=== PATIENT | male | born 1975 | race Caucasian/White ===

== ENCOUNTER 2018-01-01 11:32 | Emergency (ER) | payer BC ==
--- NOTE | 2018-01-01 11:44 | EDM.PDOC ---
ED HPI GENERAL MEDICAL PROBLEM - General Chief Complaint: Abdominal Pain Stated Complaint: UPPPER STOMACH PAIN Time Seen by Provider: 01/01/18 11:40 Source of Information: Reports: Patient History Limitations: Reports: No Limitations - History of Present Illness INITIAL COMMENTS - FREE TEXT/NARRATIVE: History of present illness: []Patient has had 4 days of gastric pain that is worsening. He has had fevers and chills but denies any nausea vomiting or diarrhea. Patient has had his appendix out but he recently learned he has a history of gallbladder disease in his family. Patient denies any known history of acid reflux. He denies any black stools. He has not noted any pattern of food worsening his pain. Review of systems: As per history of present illness and below otherwise all systems reviewed and negative. Past medical history: As per history of present illness and as reviewed below otherwise noncontributory. Surgical history: As per history of present illness and as reviewed below otherwise noncontributory. Social history: No reported history of drug or alcohol abuse. Family history: As per history of present illness and as reviewed below otherwise noncontributory. Physical exam: General: Well developed, well nourished in NAD HEENT: Atraumatic, normocephalic, pupils reactive, negative for conjunctival pallor or scleral icterus, mucous membranes moist, throat clear, neck supple, nontender, trachea midline. Lungs: Clear to auscultation, breath sounds equal bilaterally, chest nontender. Heart: S1S2, regular, negative for clicks, rubs, or JVD. Abdomen: NABS Soft, nondistended, tender epigastrium no rebound or guarding. Negative for masses or hepatosplenomegaly. Negative for costovertebral tenderness. Pelvis: Stable nontender. Genitourinary: Deferred. Rectal: Deferred. Extremities: Atraumatic, negative for cords or calf pain. Neurovascular unremarkable. Neuro: Awake, alert, oriented. Cranial nerves II through XII unremarkable. Cerebellum unremarkable. Motor and sensory unremarkable throughout. Exam nonfocal. Diagnostics: CBC, normal chemistry normal including LFTs and lipase, UA negative Therapeutics: []Pepcid IV, IV fluids. Impression: []Acid reflux Plan: []Prilosec once a day for 2 weeks follow up with primary care return if symptoms worsen or change. Definitive disposition and diagnosis as appropriate pending reevaluation and review of above. Epigastric Pain Score (Numeric/FACES): 4 - Related Data Allergies Allergy/AdvReac Type Severity Reaction Status Date / Time No Known Allergies Allergy Verified 01/01/18 11:46 Home Meds: Home Meds . [No Known Home Meds] 11/12/14 [History] Social & Family History - Tobacco Use Smoking Status *Q: Current Some Day Smoker Years of Tobacco use: 15 - Alcohol Use Days Per Week of Alcohol Use: 2 Number of Drinks Per Day: 3 Total Drinks Per Week: 6 - Recreational Drug Use Recreational Drug Use: No ED ROS GENERAL - Review of Systems Review Of Systems: See Below (See history of present illness) ED EXAM, GI/ABD - Physical Exam Exam: See Below (See history of present illness) Course - Vital Signs Last Recorded V/S: Last Vital Signs Temp 97.3 F 01/01/18 11:44 Pulse 73 01/01/18 11:44 Resp 18 01/01/18 11:44 BP 115/72 01/01/18 11:44 Pulse Ox 97 01/01/18 11:44 - Orders/Labs/Meds Orders: Active Orders 24 hr Category Date Time Status UA W/MICROSCOPIC [URIN] Stat Lab 01/01/18 12:53 Ordered Sodium Chloride 0.9% [Saline Flush] Med 01/01/18 11:51 Active 10 ml FLUSH ASDIRECTED PRN Sodium Chloride 0.9% [Saline Flush] Med 01/01/18 11:51 Active 2.5 ml FLUSH ASDIRECTED PRN Saline Lock Insert [OM.PC] Stat Oth 01/01/18 11:51 Ordered Medication Orders Sodium Chloride (Saline Flush) 10 ml FLUSH ASDIRECTED PRN PRN Reason: Keep Vein Open Sodium Chloride (Saline Flush) 2.5 ml FLUSH ASDIRECTED PRN PRN Reason: Keep Vein Open Labs: Laboratory Tests 01/01/18 01/01/18 01/01/18 Range/Units 12:02 12:02 12:53 WBC 10.15 (4.0-11.0) K/uL RBC 5.03 (4.50-5.90) M/uL Hgb 14.0 (13.0-17.0) g/dL Hct 41.8 (38.0-50.0) % MCV 83.1 (80.0-98.0) fL MCH 27.8 (27.0-32.0) pg MCHC 33.5 (31.0-37.0) g/dL RDW Std Deviation 40.9 (28.0-62.0) fl RDW Coeff of Osmin 14 (11.0-15.0) % Plt Count 329 (150-400) K/uL MPV 9.10 (7.40-12.00) fL Neut % (Auto) 65.8 (48.0-80.0) % Lymph % (Auto) 22.3 (16.0-40.0) % Terry % (Auto) 8.8 (0.0-15.0) % Eos % (Auto) 2.5 (0.0-7.0) % Baso % (Auto) 0.6 (0.0-1.5) % Neut # (Auto) 6.7 H (1.4-5.7) K/uL Lymph # (Auto) 2.3 (0.6-2.4) K/uL Terry # (Auto) 0.9 H (0.0-0.8) K/uL Eos # (Auto) 0.3 (0.0-0.7) K/uL Baso # (Auto) 0.1 (0.0-0.1) K/uL Nucleated RBC % 0.0 /100WBC Nucleated RBCs # 0 K/uL Sodium 137 (136-148) mmol/L Potassium 3.9 (3.5-5.1) mmol/L Chloride 102 (98-107) mmol/L Carbon Dioxide 28.6 (21.0-32.0) mmol/L BUN 15 (7.0-18.0) mg/dL Creatinine 1.0 (0.8-1.3) mg/dL Est Cr Clr Drug Dosing 111.88 mL/min Estimated GFR (MDRD) > 60.0 ml/min Glucose 89 (74-106) mg/dL Calcium 8.6 (8.5-10.1) mg/dL Total Bilirubin 0.3 (0.2-1.0) mg/dL AST 28 (15-37) IU/L ALT 29 (14-63) IU/L Alkaline Phosphatase 72 (46-116) U/L Total Protein 6.8 (6.4-8.2) g/dL Albumin 3.7 (3.4-5.0) g/dL Globulin 3.1 (2.0-3.5) g/dL Albumin/Globulin Ratio 1.2 L (1.3-2.8) Lipase 121 (73-393) U/L Urine Color YELLOW Urine Appearance CLEAR Urine pH 7.5 (5.0-8.0) Ur Specific [place] 1.010 (1.001-1.035) Urine Protein NEGATIVE (NEGATIVE) mg/dL Urine Glucose (UA) NEGATIVE (NEGATIVE) mg/dL Urine Ketones NEGATIVE (NEGATIVE) mg/dL Urine Occult Blood NEGATIVE (NEGATIVE) Urine Nitrite NEGATIVE (NEGATIVE) Urine Bilirubin NEGATIVE (NEGATIVE) Urine Urobilinogen 0.2 (<2.0) EU/dL Ur Leukocyte Esterase NEGATIVE (NEGATIVE) Urine RBC 0-1 (0-2/HPF) Urine WBC 0-1 (0-5/HPF) Ur Epithelial Cells RARE (NONE-FEW) Urine Bacteria RARE (NEGATIVE) Meds: Medications Generic Name Dose Route Start Last Admin Trade Name Freq PRN Reason Stop Dose Admin Sodium Chloride 10 ml 01/01/18 11:51 Saline Flush FLUSH ASDIRECTED PRN Keep Vein Open Sodium Chloride 2.5 ml 01/01/18 11:51 Saline Flush FLUSH ASDIRECTED PRN Keep Vein Open Discontinued Medications Generic Name Dose Route Start Last Admin Trade Name Freq PRN Reason Stop Dose Admin Famotidine 20 mg 01/01/18 11:52 01/01/18 12:04 Pepcid IVPUSH 01/01/18 11:53 20 mg ONETIME ONE Administration Lactated Ringer's 1,000 mls @ 999 mls/hr 01/01/18 11:51 01/01/18 12:05 Ringers, Lactated IV 01/01/18 12:51 999 mls/hr .BOLUS ONE Administration Departure - Departure Time of Disposition: 13:17 Disposition: Home, Self-Care 01 Condition: Good Clinical Impression: Acid reflux disease Qualifiers: Esophagitis presence: esophagitis presence not specified Qualified Code(s): K21.9 - Gastro-esophageal reflux disease without esophagitis - Discharge Information Instructions: Food Choices for Gastroesophageal Reflux Disease, Adult, Easy-to- Read, Heartburn, [id number] Referrals: [facility] [Outside] PCP,None [Primary Care Provider] - Forms: ED Department Discharge Additional Instructions: The following information is given to patients seen in the emergency department who are being discharged to home. This information is to outline your options for follow-up care. We provide all patients seen in our emergency department with a follow-up referral. The need for follow-up, as well as the timing and circumstances, are variable depending upon the specifics of your emergency department visit. If you don't have a primary care physician on staff, we will provide you with a referral. We always advise you to contact your personal physician following an emergency department visit to inform them of the circumstance of the visit and for follow-up with them and/or the need for any referrals to a consulting specialist. The emergency department will also refer you to a specialist when appropriate. This referral assures that you have the opportunity for follow-up care with a specialist. All of these measure are taken in an effort to provide you with optimal care, which includes your follow-up. Under all circumstances we always encourage you to contact your private physician who remains a resource for coordinating your care. When calling for follow-up care, please make the office aware that this follow-up is from your recent emergency room visit. If for any reason you are refused follow-up, please contact the [facility] Emergency Department at and asked to speak to the emergency department charge nurse. Take Prilosec once a day for 2 weeks, follow up with your primary care physician return if any symptoms worsen or change. [facility] [address] [place] [id number] - My Orders Last 24 Hours: My Active Orders 01/01/18 11:51 Sodium Chloride 0.9% [Saline Flush] 10 ml FLUSH ASDIRECTED PRN Sodium Chloride 0.9% [Saline Flush] 2.5 ml FLUSH ASDIRECTED PRN Saline Lock Insert [OM.PC] Stat 01/01/18 12:53 UA W/MICROSCOPIC [URIN] Stat - Assessment/Plan Last 24 Hours: My Active Orders 01/01/18 11:51 Sodium Chloride 0.9% [Saline Flush] 10 ml FLUSH ASDIRECTED PRN Sodium Chloride 0.9% [Saline Flush] 2.5 ml FLUSH ASDIRECTED PRN Saline Lock Insert [OM.PC] Stat 01/01/18 12:53 UA W/MICROSCOPIC [URIN] Stat
[2018-01-01] MEDS ORDERED: Sodium Chloride 0.9% 2.5 ML Syringe FLUSH PRN (11:51)
[2018-01-01] MEDS ORDERED: Sodium Chloride 0.9% 10 ML Syringe FLUSH PRN (11:51)
[2018-01-01] MEDS ORDERED: Lactated Ringers 1,000 ML IV ONE (11:51)
[2018-01-01] MEDS ORDERED: Famotidine 20 MG/2 ML SDV IVPUSH ONE (11:52)
[2018-01-01 12:54] LABS: CHLORIDE,CL 102 mmol/L (98-107); SODIUM,NA 137 mmol/L (136-148)
[2018-01-01 13:37] VITALS: BP 115/65
== END 2018-01-01 13:30 | disposition home or self-care (01) ==
LOC: MW.ED 11:32
DX: K21.9 Gastro-esophageal reflux disease without esophagitis (principal); F17.210 Nicotine dependence, cigarettes, uncomplicated
CPT/HCPCS: 80053; 81001; 83690; 85025; 96361; 96374; 99284; J7120; 99283

== ENCOUNTER → 2025-06-07 | Day surgery (SDC) | payer BC ==
[~2025-06-07] MED LIST: propofoL 500 MG/50 ML 50 ML ONE
[2025-06-07] MEDS: Lactated Ringers 1,000 ML IV SCH (07:22)
[2025-06-07 08:50] VITALS: PULSE 57
[2025-06-07 10:22] VITALS: BP 130/76
== END | disposition home or self-care (01) ==
LOC: MW.SDS 06:48
PROVIDERS: ATTEND Surgery
DX: Z12.11 Encounter for screening for malignant neoplasm of colon (principal); K63.5 Polyp of colon; Z87.891 Personal history of nicotine dependence; Z79.899 Other long term (current) drug therapy
CPT/HCPCS: 45380; J2003; J2704; J7120